=== PATIENT | male | born 1995 | race Hispanic/Latino ===

== ENCOUNTER → 2016-06-23 | Outpatient (CLI) | payer OTHER, MEDICAID ==
--- NOTE | 2016-06-24 03:41 | REP ---
Clinical: Left-sided scrotal pain. Technique: Smith scale and color Doppler evaluation using linear and curved array transducer with color Doppler evaluation. Findings: The testicles and epididymi are relatively normal in contour, size, echogenicity, vascularity and overall appearance/contour. There is no evidence for intratesticular mass lesion, infectious/inflammatory process, with torsion. No obvious hydroceles are identified. Left-sided varicoceles are identified and correspond to the patient's area of tenderness. Distended vessels measure up to approximately 3.7 mm maximal diameter. Right testicle measures 5.3 x 2.5 x 3.4 cm cm. Left testicle measures 4.9 x 2.1 x 3.0 cm cm. Impression: Left-sided varicoceles corresponding to the patient's area of tenderness. Otherwise normal scrotal and testicular ultrasound. Signed by Emilio Gongora MD 06/24/2016 03:32 A
== END ==
LOC: M RAD 12:50
PROVIDERS: ATTEND Physician Assistant Medical
DX: I86.1 Scrotal varices (principal)

== ENCOUNTER → 2020-06-22 | Outpatient (REF) | payer OTHER, MEDICAID ==
[2020-06-22 18:27] LABS: BASO % 0.6 % (0.0-1.0); EOS # 0.2 10^3/uL (0.0-0.5); EOS % 2.7 % (0.0-3.0); HEMOGLOBIN 14.8 g/dl (13.5-17.5); LYMPH # 2.3 10^3/uL (1.5-5.0); LYMPH % 36.6 % (24.0-44.0); MEAN CORPUSCULAR HEMOGLOBIN 28.2 pg (27.0-33.0); MEAN CORPUSCULAR HGB CONC 32.9 g/dl (32.0-36.5); MEAN CORPUSCULAR VOLUME 85.9 fl (80.0-96.0); MONO # 0.5 10^3/uL (0.0-0.8); MONO % 8.4 % (0.0-5.0); NEUTROPHILS # 3.2 10^3/uL (1.5-8.5); NEUTROPHILS % 51.4 % (36.0-66.0); PLATELET COUNT, AUTOMATED 353 10^3/uL (150-450); RED BLOOD COUNT 5.24 10^6/uL (4.30-6.10); WHITE BLOOD COUNT 6.3 10^3/uL (4.0-10.0)
[2020-06-22 19:09] LABS: ALBUMIN 4.8 GM/DL (3.2-5.2); ALT/SGPT 58 U/L (12-78); BILIRUBIN,TOTAL 0.8 MG/DL (0.2-1.0); BLOOD UREA NITROGEN 13 MG/DL (7-18); CALCIUM LEVEL 9.9 MG/DL (8.5-10.1); CARBON DIOXIDE LEVEL 31 MEQ/L (21-32); CHLORIDE LEVEL 103 MEQ/L (98-107); GLOMERULAR FILTRATION RATE > 60.0 (>60); GLUCOSE, FASTING 91 MG/DL (70-100); LIPASE 68 U/L (73-393); POTASSIUM SERUM 4.8 MEQ/L (3.5-5.1); SODIUM LEVEL 139 MEQ/L (136-145); TOTAL PROTEIN 8.5 GM/DL (6.4-8.2)
== END ==
LOC: M LAB REF 16:09
PROVIDERS: ATTEND Physician Assistant
DX: R10.9 Unspecified abdominal pain (principal)

== ENCOUNTER → 2020-08-13 | Outpatient (CLI) | payer OTHER ==
--- NOTE | 2020-08-13 08:22 | REP ---
INDICATION: ABD PAIN. COMPARISON: None. TECHNIQUE: Complete abdominal sonography. FINDINGS: Scanning through the right upper quadrant the abdomen demonstrates a normal sized and walled gallbladder without evidence of stone or polyp. Common bile duct is normal measuring 0.5 cm in greatest diameter. Increased echogenicity is seen in the liver diffusely with some sparing near the gallbladder consistent with fatty infiltration mild in degree. No focal liver lesion is seen. The liver is not felt to be enlarged. Pancreas is unremarkable. Scanning in the left upper quadrant demonstrates a normal size homogeneous spleen measuring 9.8 cm in greatest diameter. A normal caliber aorta is seen. Renal cortical echogenicity pattern is normal in contours are smooth bilaterally. Right renal dimensions are 11.6 x 6.3 x 4.8. Left kidney measures 11.2 x 6.3 x 6.8 cm. There is no evidence of hydronephrosis or mass. There is no evidence of ascites. IMPRESSION: Evidence of fatty infiltration of the liver. Otherwise unremarkable complete abdominal sonography. <Electronically signed by Rich Reina > 08/13/20 0423
== END ==
LOC: M RAD 06:54
PROVIDERS: ATTEND Physician Assistant
DX: R10.9 Unspecified abdominal pain (principal)

== ENCOUNTER → 2021-05-06 | Outpatient (REF) | payer OTHER | LOC: M LAB REF 16:42 | PROVIDERS: ATTEND Physician Assistant | DX: J02.9 Acute pharyngitis, unspecified (principal) ==

== ENCOUNTER 2023-04-22 19:35 | Emergency (ER) | payer OTHER ==
[2023-04-22 22:59] VITALS: BP 116/65; TEMP 98; O2SAT 97
== END 2023-04-22 23:00 | disposition home or self-care (01) ==
LOC: M ED 19:35
DX: R05.9 Cough, unspecified (principal); R09.81 Nasal congestion; Z91.013 Allergy to seafood

== ENCOUNTER → 2023-12-13 | Outpatient (REF) | payer OTHER ==
[2023-12-13 14:40] LABS: Trichomonas vaginalis (AMP) NOT DETECTED (NEGATIVE)
[2023-12-13 14:46] LABS: HIV 1&2 SCREEN NEGATIVE (NEGATIVE)
[2023-12-13 14:53] LABS: HEPATITIS C VIRUS ABY INDEX < 0.02 INDEX (<0.8)
[2023-12-13 15:27] LABS: GC DNA AMPLIFICATION NEGATIVE (NEGATIVE)
== END ==
LOC: M LAB REF 12:56
PROVIDERS: ATTEND Nurse Practitioner Family
DX: Z11.3 Encounter for screening for infections with a predominantly sexual mode of transmission (principal)

== ENCOUNTER → 2024-07-02 | Outpatient (REF) | payer OTHER ==
[2024-07-02 18:56] LABS: HIV 1&2 SCREEN NEGATIVE (NEGATIVE)
[2024-07-02 19:04] LABS: HEPATITIS C VIRUS ABY INDEX 0.11 INDEX (<0.8)
[2024-07-02 19:13] LABS: Trichomonas vaginalis (AMP) NOT DETECTED (NEGATIVE)
[2024-07-02 19:36] LABS: GC DNA AMPLIFICATION NEGATIVE (NEGATIVE)
== END ==
LOC: M LAB REF 16:26
PROVIDERS: ATTEND Family Medicine Addiction Medicine
DX: Z11.3 Encounter for screening for infections with a predominantly sexual mode of transmission (principal)

== ENCOUNTER → 2024-09-25 | Outpatient (CLI) | payer OTHER | LOC: M RAD 14:18 | PROVIDERS: ATTEND Physician Assistant | DX: M25.572 Pain in left ankle and joints of left foot (principal) ==